=== PATIENT | female | born 1965 | race Caucasian/White ===

== ENCOUNTER 2021-03-21 10:53 | Inpatient (IN) | payer OTHER ==
[~2021-03-21] VITALS: Ht 165.1 cm; Wt 77.1 kg
--- NOTE | ~2021-03-21 | HC ---
[facility] [place] [address] CONSULTATION Name: TONY AGOSTO Room #: 206-P ADM IN M.R.#: [id number] Admission: 03/21/21 Attend Phys: Pablo Lopez MD Discharge: Date of : 63 Report #: [id number] THIS REPORT FOR: cc: GRISEL MENA MD Physician not on staff Eusebio Alexander MD ~ DATE OF SERVICE: 03/24/2021 HISTORY OF PRESENT ILLNESS: This is a 55-year-old female patient who is not able to provide any reliable history. I tried to call the patient's mother twice, but was unable to reach her. I left a message for her to call back. I reviewed from the records and looks like the biggest complaint for which she was admitted was generalized weakness. She did have apparently some altered mental status. She was seen by Teleneurology and subsequently by ID. Teleneurology did a CT angiogram of the head and neck and that was unremarkable. ID followed her up for infection, which was low grade. They are managing the infection part of it. I discussed the patient with them. They do not plan to do LP at the moment because this patient is very uncooperative and apparently will require anesthesia to do the LP. They are handling that and I will defer to them. Neurology consultation was requested because she was admitted with a stroke-like symptom to see if any other workup need to be done. Since I am unable to reach the patient's mother, I am not able to get a good history, but the best I can tell this patient is admitted because her biggest problem was ambulation difficulty. She was alert and oriented x 2 in the Emergency Room and I am not sure whether that is much different than her baseline. She is going to be seen by a psychiatrist also. REVIEW OF SYSTEMS: Also positive for schizoaffective, bipolar disorder, esophageal reflux, hypertension. This is from the record. PAST MEDICAL HISTORY: Positive for psychiatric issues, but I do not know what her baseline is except from the record. FAMILY HISTORY: Unavailable. SOCIAL HISTORY: She lives in a alf. PHYSICAL EXAMINATION: Somewhat unusual. She is conscious. She is alert. When I ask her a question, she just smiles and she ultimately told me what hospital she is in. When I asked her what month it is, she did not know. When I told her it is March, she told me it is not March. Her speech looks intact. Cranial nerve examination 2-12 was limited because of poor cooperation, but looks mostly nonfocal. There does not appear to be any abnormality of the position sense and she cooperated that reasonably well. She did move all 4 extremities. It is difficult to tell me how much difference it is with her baseline because she is reasonably did well with the strength. No change in cardiac or respiratory [address] [address] CONSULTATION Name: TONY AGOSTO Room #: 206-P ADM IN M.R.#: [id number] Admission: 03/21/21 Attend Phys: Pablo Lopez MD Discharge: Date of : 63 Report #: [id number] status. IMPRESSION AND PLAN: It is impossible to tell what is happening in this patient since the baseline is unknown. I do not think she has any stroke. I will do an MRI and EEG to exclude any pathology. We will defer to ID, but a question of LP and they are already addressing that. I will see if MRI and EEG shows any other abnormality, which needs any Neurology attention and follow up tomorrow I spent more than 50 minutes of time reviewing her imaging studies and her records and trying to console her, but I am not sure she understands, but we will talk to the patient's mother also whenever she called us back. By: [id number] Eusebio Alexander MD /nt
--- NOTE | ~2021-03-21 | EMS ---
[address] [address] EMS Patient Care Report Name: TONY AGOSTO Room #: 206-P ADM IN M.R.#: [id number] Admission: 03/21/21 Attend Phys: Pablo Lopez MD Discharge: Date of : 63 Report #: [id number] THIS REPORT FOR: //name// Report Transmitted: 03/25/2021 09:46 EMS Care Summary [place], [place]/[facility] Incident [id number] @ 03/21/2021 10:17 Incident Location [address] [facility] Patient TONY AGOSTO Female, 55 Years 1965 Patient Address [address] [place], [place] [id number] Patient History Seizures,Bipolar II Disorder,Schizoaffective Disorder, Patient Allergies No known allergies, Patient Medications Clonazepam, Levothyroxine, Invega, Divalproex Sodium, Risperidone, Benztropine, Chief Complaint aloc/fever Disposition Transported No Lights/[place] Dispatch Reason Sick Person Transported To [facility] Narrative staff states pt hasnt been acting like her self for past 24 hours. she normally talks and gets around she hasnt been able to eat /drink , has nt been acting like self .we took temp and was warm to touch, she never spoke to us . she was [address] [address] EMS Patient Care Report Name: TONY AGOSTO Room #: 206-P ADM IN M.R.#: [id number] Admission: 03/21/21 Attend Phys: Pablo Lopez MD Discharge: Date of : 63 Report #: [id number] anxious and hard to keep on cot. no other changes en route. Initial Vitals @10:38P: 98,R: 18,BP: 127/82,Temp: 99F,Glucose: 107,SpO2: 90, @10:49P: 95,R: 16,BP: 135/70,Pain: 0/10,GCS: 14,SpO2: 99,Revised Trauma: 12, Assessments @10:45MENTAL:Confused,SKIN:Hot,HEENT:Head/Face: No Abnormalities,Eyes: No Abnormalities,Neck/Airway: No Abnormalities,LUNG SOUNDS:General: No Abnormalities,Left Upper: No Abnormalities,Right Upper: No Abnormalities,Left Lower: No Abnormalities,Right Lower: No Abnormalities,ABDOMEN:General: No Abnormalities,Left Upper: No Abnormalities,Right Upper: No Abnormalities,Left Lower: No Abnormalities,Right Lower: No Abnormalities,PELVIS//GI:Incontinence,EXTREMITIES:Left Arm: No Abnormalities,Right Arm: No Abnormalities,Left Leg: No Abnormalities,Right Leg: No Abnormalities,PULSE:NEURO:No Abnormalities, Impression Altered Mental Status Procedures @10:45 Oxygen FlowRate: 2 Device: Nasal Cannula (NC) Response: UnchangedSucceeded @10:45 ALS Assessment Response: UnchangedSucceeded @10:49 General Comments Response: Unchanged Timeline 10:15,Call Received 10:15,Dispatch Notified 10:17,Dispatched 10:17,En Route 10:22,On Scene 10:26,At Patient 10:31,Depart Scene 10:38,BP: 127/82 M,PULSE: 98,RR: 18 R,SPO2: 90 Ox,ETCO2: ,B,PAIN: ,GCS: , 10:45,ALS Assessment,Response: UnchangedSucceeded, 10:45,Oxygen FlowRate: 2 Device: Nasal Cannula (NC) Response: UnchangedSucceeded, 10:49,At Destination 10:49,General Comments,Response: Unchanged 10:49,BP: 135/70 M,PULSE: 95,RR: 16 R,SPO2: 99 Ox,ETCO2: ,BG: ,PAIN: 0,GCS: 14, 11:11,Call Closed Disclaimer v1.1 Copyright 2021 [email or web address] [place] [address] EMS Patient Care Report Name: TONY AGOSTO Room #: 206-P ADM IN .R.#: [id number] Admission: 03/21/21 Attend Phys: Pablo Lopez MD Discharge: Date of : 63 Report #: [id number] This EMS Care Summary contains data elements from the applicable legal record (which may be displayed differently). It is designed to provide pertinent information for the following purposes: continuity of care, clinical quality, and state data reporting. The complete legal record is available to ED staff and administrators of the receiving hospital in [facility]'s Patient Tracker. All data is provided "as is."
[2021-03-21 10:53] VITALS: BP 119/77
[~2021-03-21 10:53] MED LIST: ACETAMINOPHEN325 M1 PO; ATIVAN1 MG; BENZTROPINE MES1 MG PO; CELEXA40 MG PO; CLOZAPINE100 M1 PO; DEPAKOTE 250MG250 M1; HALDOL 0.5 MG0.5 M1; HYDROCHLOROTH12.5 MG PO; IBUPROFEN 600600 M1 PO; LORAZEPAM 22 MG/1 ML; MOM PO; MULTIVITAMINS1 EAC7; MYLANTA 12 OZ355 M1 PO; PANTOPRAZOLE SO40 M1; PEPTO-BISM262 MG/15 PO; RISPERDAL2 MG; SODIUM CHLORIDE1 G2; SYNTHROID175 MCG PO
[2021-03-21 11:24] LABS: URINE BILIRUBIN NEGATIVE (Negative); URINE BLOOD NEGATIVE (Negative); URINE CLARITY CLEAR; URINE COLOR YELLOW; URINE GLUCOSE-RANDOM* NEGATIVE (Negative); URINE KETONES 1+ (Negative); URINE LEUKOCYTES-REFLEX NEGATIVE (Negative); URINE NITRITE-REFLEX NEGATIVE (Negative); URINE PROTEIN (DIPSTICK) NEGATIVE (Negative); URINE SPECIFIC GRAVITY 1.015 (1.005-1.035)
[2021-03-21 11:42] LABS: CALCIUM 8.9 mg/dL (8.5-10.1)
[2021-03-21 11:43] LABS: BASOPHILS 0.1 % (0.0-2.0); HEMATOCRIT 38.4 % (37.0-47.0); HEMOGLOBIN 12.8 gm/dL (12.0-15.0); LYMPHOCYTES 11.4 % (24.0-44.0); MCH 30.2 pg (26.0-34.0); MCHC 33.2 g/dL (28.0-37.0); MCV 90.9 fL (80.0-100.0); MONOCYTES 13.1 % (1.0-8.0); PLATELET COUNT 107 thou/uL (150-400); POLYS 75.4 % (36.0-66.0); RBC 4.23 mil/uL (4.20-5.00); RDW 16.1 % (10.5-14.5); WBC 6.7 thou/uL (4.0-11.0)
[2021-03-21 11:48] LABS: ALBUMIN 2.7 g/dL (3.4-5.0); DIRECT BILIRUBIN 0.1 mg/dL (<0.1-0.2); TOTAL BILIRUBIN 0.5 mg/dL (0.2-1.0)
--- NOTE | 2021-03-21 13:36 | NUR ---
Contacted [facility] to attain info re:pt's baseline mentation.Unable to speak w/ nurse.Message left w/ clinic receptionist for nurse to return call to IRASEMA Miner
[2021-03-21 20:00] VITALS: BP 130/76
[2021-03-22 04:00] VITALS: BP 98/59
[2021-03-22 06:12] LABS: HEMATOCRIT 33.7 % (37.0-47.0); HEMOGLOBIN 11.2 gm/dL (12.0-15.0); MCH 30.8 pg (26.0-34.0); MCHC 33.2 g/dL (28.0-37.0); MCV 92.7 fL (80.0-100.0); RBC 3.64 mil/uL (4.20-5.00); RDW 16.3 % (10.5-14.5); WBC 3.2 thou/uL (4.0-11.0)
[2021-03-22 06:50] LABS: ALBUMIN 2.4 g/dL (3.4-5.0); CALCIUM 8.6 mg/dL (8.5-10.1); CREATININE 0.8 mg/dL (0.6-1.0); POTASSIUM 3.8 mmol/L (3.5-5.1); TOTAL BILIRUBIN 0.3 mg/dL (0.2-1.0); TOTAL PROTEIN 5.4 g/dL (6.4-8.2)
[2021-03-22 09:35] VITALS: BP 122/72
[2021-03-22 22:55] VITALS: BP 150/83
[2021-03-22 23:25] VITALS: BP 150/83
[2021-03-23 01:06] LABS: CORTISOL RANDOM 11.7 ug/dL (())
--- NOTE | 2021-03-23 04:35 | NUR ---
PT LYING IN BED. IMPULSIVE. DENIES PAIN. CURRENTLY RESTING COMFORTABLY. FREQUENT OBSERVATION.
[2021-03-23 10:00] VITALS: BP 117/70
[2021-03-23 11:48] LABS: APTT 28.4 Seconds (24.5-32.8); INR 1.01
--- NOTE | 2021-03-23 12:58 | NUR ---
PT OFF UNIT FOR LUMBAR PUNCTURE.
--- NOTE | 2021-03-23 13:19 | NUR ---
PT RETURN FROM RADIOLOGY AND UNABLE TO COMPLETE LUMBAR PUNCTURE.
[2021-03-23] MEDS ORDERED: KLONOPIN1 MG PO (20:00)
[2021-03-23] MEDS ORDERED: DIVALPROEX SOD500 M1 PO (20:02)
[2021-03-23 20:40] VITALS: BP 114/66
[2021-03-24 01:04] VITALS: BP 114/66
--- NOTE | 2021-03-24 04:45 | NUR ---
PT IS PLEASANTLY CONFUSED. MED REC COMPLETED ON PTS PSYCH MEDICATION OFF LIST SENT FROM [facility]. PT SHOULD GO FOR LUMBAR PUNCTURE TODAY.
[2021-03-24 05:08] VITALS: BP 160/82
--- NOTE | 2021-03-24 08:00 | HC ---
[facility] [place] [address] CONSULTATION Name: TONY AGOSTO Room #: 170-24 ADM IN Darlene.Merry.#: [id number] Admission: 03/21/21 Attend Phys: Pablo Lopez MD Discharge: Date of : 63 Report #: [id number] THIS REPORT FOR: cc: GRISEL MENA MD Physician not on staff William Roberts MD ~ DATE OF SERVICE: 03/23/2021 INFECTIOUS DISEASE CONSULTATION ATTENDING PHYSICIAN: Dr. Lopez. REASON FOR EVALUATION: Febrile illness with encephalopathy. HISTORY OF PRESENT ILLNESS: Chart reviewed. The patient examined. This is a 55-year-old with known history of significant psychiatric issues including schizoaffective disorder, bipolar disorder, who was in a facility. Apparently, they noted worsening confusion and draining sinus on her neck. Reportedly, she has not been particularly responsive, although she did awake for me. She is quite confused. She has been afebrile. Evaluation noted a markedly low TSH in the setting of hypothyroidism. Urinalysis is unremarkable. Lactic acid 1.1. Chest x-ray showed a possible left basilar infiltrate. Coronavirus testing was negative. Influenza antigen testing was negative. CT of the head was otherwise unremarkable. CT of the neck showed no acute process intracranially or involving the neck. Blood cultures collected at time of admission are sterile thus far. She is scheduled to undergo a lumbar puncture. She was empirically started on therapy with azithromycin and ceftriaxone. ALLERGIES: None known. CURRENT MEDICATIONS: Include Haldol, ceftriaxone, azithromycin. HOME MEDICATIONS: Include multivitamin, pantoprazole, Haldol, risperidone, Valproex, lorazepam, clozapine, citalopram, levothyroxine. SOCIAL HISTORY: Nonsmoker, no ethanol, no illicit drug use. FAMILY HISTORY: Noncontributory. REVIEW OF SYSTEMS: Not reliably obtained. PHYSICAL EXAMINATION: GENERAL: She is chronically ill-appearing, confused, undernourished, in moderate distress. VITAL SIGNS: Temperature 98.7, pulse 50, respirations 20, blood pressure 117/70. [facility] [address] [place] [address] CONSULTATION Name: TONY AGOSTO Room #: 170-24 ADM IN M.R.#: [id number] Admission: 03/21/21 Attend Phys: Pablo Lopez MD Discharge: Date of : 63 Report #: [id number] SKIN: Warm, dry, no rashes. HEENT: Normocephalic. Extraocular muscles intact. NECK: Supple. LUNGS: Diminished breath sounds. Few crackles at the bases. HEART: Regular. I do not appreciate a murmur. ABDOMEN: Soft, nontender. EXTREMITIES: No cyanosis. GENITOURINARY AND RECTAL: Deferred. LABORATORY DATA: Electrolytes: Sodium 144, potassium 3.8, chloride 110, bicarbonate 28, anion gap of 6, BUN and creatinine 8 and 0.8, glucose of 72, albumin 2.4, total protein 5.4, ammonia 12. CBC: White count of 3.2, H and H is 11.2 and 33.7, platelets of 89. Coronavirus PCR was negative. ASSESSMENT AND PLAN: Febrile illness with worsening encephalopathy. It is not entirely clear what her baseline is. She clearly has significant underlying medical and psychiatric disease burden. We will adjust antimicrobial therapy, await lumbar puncture results. At this point, not evident she has a bacterial meningitis. She is certainly at risk for nosocomial related complications. We will monitor. <ELECTRONICALLY SIGNED> By: William Roberts MD 03/24/21 08 1059 192 William Roberts MD /nt
[2021-03-24 09:26] VITALS: BP 139/85
--- NOTE | 2021-03-24 11:28 | NUR ---
PT ADMITTED RELATED TO AMS, SLURRED SPEECH, DEHYDRATION. CM REVIEWED CHART AND SPOKE WITH CARE TEAM. JAREK CALLED AND SPOKE WITH PT'S MOTHER KRISTIN YESTERDAY. SHE INDICATED THAT SHE IS PT'S LEGAL GUARDIAN AND THAT [facility] HAS COPY ON FILE. SHE INDICATED THAT PT HAS BEEN AT [facility] FOR 9 YEARS. 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 HER MOTEHR INDICATED THAT PT'S HAD ONSET OF SCHIZOAFFECTIVE DISORDER AT 25 AND HAD BEEN MOSTLY INSUTUTIONALIZED SINCE THEN. PT HAD HX OF ABD CANCER AND HAD MASS REMOVED AT [facility] [address]. PT HAD NECK LUMP WELL. PT HAD ECT WHEN IN INPATIENT PSYC AT [facility]. JAREK INDICATED TO MOTHER THAT THEY WERE TRYING TO DO AN LP AND EXPLAINED WHAT THAT WAS AND THAT PT WAS ON A NUMBER OF ABX. CM PROVICED MOTHER/GUARDIANS NUMBER TO HOSPITALIST. MOTHER INDICATED PLAN IF FOR PT TO RETURN TO [facility] ONCE MEDICALLY STABLE. THEY ARE ABLE TO ACCEPT ONCE READY. JAREK SPOKE WITH SOULEYMANE AT [facility] AND PROVIDED UPDATE. SHE IS TO FAX OVER COPY OF GUARDIANSHIP PAPERWORK. CM FOLLOWING.
--- NOTE | 2021-03-24 12:25 | NUR ---
PT NOT APPROPRIATE FOR OT DUE TO COGNITIIVE/MENTAL STATUS. SEE VARIANCE
--- NOTE | 2021-03-24 15:06 | NUR ---
Care team indicated that they aren't going to conduct LP any longer. Pt is on ceftriaxone, vancomycin, and acyclovir. Hospitalist indicated that we are awaiting ID determination of abx needs and duration. Cm reached out to SOULEYMANE quezada at [facility] and she indicated they wouldn't accept this particilar pt back on iv abx. Cm notified Hospitalist. Cm following.
--- NOTE | 2021-03-24 15:59 | NUR ---
PT ALERT AND ORIENTED TIMES THREE WITH PERIODS OF CONFUSION. VSS. LUMBAR PUNCTURE CANCELED TODAY. PT HAS REPEATEDLY REFUSED TO HAVE HER IV REPLACED AFTER PULLING IT OUT THIS MORNING. DR SOTOMAYOR. PT WORKED WELL WITH PT TODAY WALKING IN THE HALLWAY.
[2021-03-24 17:49] VITALS: BP 159/80
[2021-03-24 20:11] VITALS: BP 147/72
[2021-03-24 20:12] VITALS: BP 147/72
--- NOTE | 2021-03-24 23:38 | NUR ---
PATIENTS CARES WHERE ASSUMED AT SHIFT CHANGE. PATIENT REFUSED TO LET NURSING ASSESS HER. SHE HAS NO IV ACCESS. SHE IS REFUSING TO WEAR THE HEART MONITOR STATING, "IT IS GOING TO CAUSE ME TO HAVE A HEART ATTACH." PATIENT HAS GOOD OUT PUT. AT HALF THE SHIFT SHE HAS PUT OUT 1000CC OF URINE.ROUTINE ROUNDS DONE TO NOT UPSET HER. THE BED IS IN A LOW AND LOCKED POSITION
[2021-03-25 03:54] VITALS: BP 138/79
[2021-03-25 07:57] VITALS: BP 142/81
[2021-03-25 11:30] VITALS: BP 126/79
[2021-03-25 15:41] VITALS: BP 143/72
--- NOTE | 2021-03-25 16:44 | NUR ---
AT 8AM PT REFUSED TO TAKE HER MEDS SAYING, "ITS POISON!" PT HAS NO IV ACCESS, NO TELE ON. PT KEEPS SAYING, "SHELLEY IS SUPPOSE TO COME BRING MY FOOD TRAYS." THEN PT STATED "THAT WOMAN IN THE CORNER IS COOKING ME EGGS AND I WANT TO EAT THEM!"
[2021-03-25 19:31] VITALS: BP 126/88
[2021-03-26 03:42] VITALS: BP 126/77
[2021-03-26 07:45] VITALS: BP 126/80
--- NOTE | 2021-03-26 08:42 | NUR ---
PATIENT REFUSING ALL MEDICATIONS AND FOOD THIS MORNING STATING THAT IT IS ALL "POISON" AND THAT I NEED TO LEAVE HER ROOM. ATTEMPTED TO ORIENT AND EDUCATE PATIENT ON HER HOSPITAL STAY AND PLAN OF CARE, BUT PATIENT WAS UNACCEPTING AT THIS TIME.
--- NOTE | 2021-03-26 15:30 | NUR ---
CHART REIVEWED AND DISCUSSED WITH CARE TEAM. PT WILL TRANSFER BACK TO [facility] UNIT ONCE PT MEDICALLY STABLE TO DC. CM WILL CONTINUE TO FOLLOW.
[2021-03-26 16:00] VITALS: BP 123/77
[2021-03-26] MEDS ORDERED: LORAZEPAM 22 MG/1 ML IM (17:45)
[2021-03-26] MEDS ORDERED: LORAZEPAM 1 MG T1 MG PO (17:45)
[2021-03-26] MEDS ORDERED: DIVALPROEX SOD500 M1 PO (17:45)
[2021-03-26] MEDS ORDERED: RISPERDAL2 MG PO (17:45)
[2021-03-26] MEDS ORDERED: DIVALPROEX SOD250 M1 PO (17:45)
[2021-03-26] MEDS ORDERED: CEFDINIR300 MG PO (17:50)
[2021-03-26 20:36] VITALS: BP 124/73
--- NOTE | 2021-03-26 23:45 | NUR ---
Pt. has been non-compliant with cares. She refused to let this nurse do assessment. Pt. now being transfered to [facility] and report given to Raya GABRIEL.
== END 2021-03-26 23:44 | DRG 193 ==
LOC: ER 10:53 → EROBS 17:39 → 2N 17:39 → EROBS 21:02 → 2N 03-24 17:39
PROVIDERS: Nurse Practitioner; Psychiatry & Neurology Psychiatry; ADMIT Internal Medicine; ATTEND Internal Medicine
DX: J18.9 Pneumonia, unspecified organism (principal); G92.8 Other toxic encephalopathy; Z20.822 Contact with and (suspected) exposure to COVID-19; E03.9 Hypothyroidism, unspecified; Z77.22 Contact with and (suspected) exposure to environmental tobacco smoke (acute) (chronic); M19.90 Unspecified osteoarthritis, unspecified site; I10 Essential (primary) hypertension; K21.9 Gastro-esophageal reflux disease without esophagitis; F25.0 Schizoaffective disorder, bipolar type; R41.0 Disorientation, unspecified; Z82.49 Family history of ischemic heart disease and other diseases of the circulatory system
CPT/HCPCS: 10081

== ENCOUNTER 2021-03-26 18:01 | Inpatient (IN) | payer OTHER ==
[~2021-03-26] VITALS: Ht 167.6 cm; Wt 81.2 kg
[~2021-03-26 18:01] MED LIST changes: +CEFDINIR300 MG PO; +DIVALPROEX SOD250 M1 PO; +DIVALPROEX SOD500 M1 PO; +KLONOPIN1 MG PO; +LORAZEPAM 1 MG T1 MG PO; +LORAZEPAM 22 MG/1 ML IM; +RISPERDAL2 MG PO
--- NOTE | 2021-03-27 02:51 | NUR ---
ADMISSION WILLIAN Gusman was admitted to [facility] from on 03/27/21 at 0002. Pt was not cooperative with admission process. Pt was made a 96 hour hold for refusing to sign in voluntarily. Vital signs were obtained. Skin assessment was performed; results unremarkable. Pt was provided with snack, water, and toiletries. Pt rested in bed through the night.
[2021-03-27 09:28] VITALS: BP 129/78
--- NOTE | 2021-03-27 10:35 | NUR ---
Alert and orientated to person, place and time but gives different name at times. Refusing to get out of bed initially and then pretending to be asleep. Refused meds when offered on multiple passes, Dr. Ramirez notified, states he will reevaluate after tx team. Denies SI/HI. Refused labs stating that she was still eating. certified veterinary technician states he will come back. Breath sounds clear. Reg HR auscultated. Color pink with brisk capillary refill and palpable peripheral pulses. Independent with voiding. Active bowel sounds over soft, rounded abdomen. Ambulates with regular, steady gait. Currently eating breakfast in day room.
--- NOTE | 2021-03-27 11:06 | NUR ---
Phone call to mother, Luz Marina Florentino - Voice message
--- NOTE | 2021-03-27 11:16 | NUR ---
Alert and orientated X3. Initially gave a different name and stated that I didn't need to know her real name. Resistant to getting out of bed and when encouraged she pretended to sleep. Refused to take AM meds on multiple passes. Dr. Ramirez notified, will evaluate after tx plan. Also refused lab draw X2, shanique gold requested. Was then compliant with lab draw, collection specialist clover labs per L AC without difficulty. Breath sounds clear. Reg HR auscultated. Color pink with brisk capillary refill and palpable peripheral pulses. Active bowel sounds over soft, rounded abdomen. Independent with voiding. Ambulates with regular, steady gait. Currently speaking with Dr. Ramirez.
[2021-03-27 11:51] LABS: CHOLESTEROL 223 mg/dL (<200); HDL CHOLESTEROL 42 mg/dL (>40); LDL CHOLESTEROL 119 mg/dL (<100); TC:HDL 5.3 Ratio (Not establshd); TRIGLYCERIDE 310 mg/dL (<150); VLDL 62 mg/dL (<40)
--- NOTE | 2021-03-27 11:54 | NUR ---
New admit to [facility]. Noted pt was on CCU prior, admitted to [facility] early this AM. Admitted with AMS, dx bipolar d/o, HTN. She has had good intakes on regular diet with no c/o chewing or swallowing difficulty. ST eval completed. Her weight is stable. Plan to d/c back to [facility] when able. Consider low nutrition risk at this time.
--- NOTE | 2021-03-27 14:56 | NUR ---
BRIANA and Dr. Ramirez met with the patient. The patient knows she is in [facility]; however, she does not know what unit she is on nor what she was hospitalized for. When asked the date, the patient responded that it was March 06. She remained adamant that it was that day despite being informed otherwise. When asked who she resides with, the patient responded "with her kids". The patient denies any SI/HI. The patient started laughing. The SW asked who was in the room with the patient and the patient responded appropriately. Dr. Ramirez asked the patient where was she born and raised. The patient sat quietly and no longer responded. The meeting with the patient was ended. The SW attempted to contact the patient's guardian, her mother Luz Marina. A voice message was left. The mother did leave a return voice message stating she was in a library and was not able to talk but could text. The SW and Dr. Ramirez made contact with the patient's mother ([phone]). The mother, Luz Marina, is the guardian for the patient. The placement, [facility], has the paperwork indicating the guardianship. Luz Marina reported she would not be able to send a copy but could text a picture of the documentation once she returned home. Luz Marina reports the patient was diagnosed with schizophrenia after the of her 4th child when she was 25 years old. Luz Marina and the patient's father, who is now , had been concerned in that the patient was not feeding and the baby and saying the baby did not have a liver. Luz Marina and the patient's father attempted to keep the patient in the home for as long as they could; however, they became unable to control the patient in the home. The patient has had several hospitalizations and been in multiple institutions. The patient is currently placed at [facility] and has been for the past 9 years. Luz Marina reports that [facility] made contact with her stating the patient was lethargic and laying on the floor. Luz Marina reports that one of the other symptoms the patient frequently experiences is auditory hallucinations. Luz Marina states the voices will tell the patient to do "all types of things". The patient has a college degree and worked as a household personal assistant. She does not have a history of substance or alcohol abuse. There are no family members with mental health history. Luz Marina is in support of everything to be done to ensure that the patient is receiving medication. She reported that having someone from security would most likely encourage the patient to take medication. A family meeting will be scheduled for Tuesday, 03/30 at 1500.
[2021-03-27 21:04] VITALS: BP 122/85
--- NOTE | 2021-03-27 23:40 | NUR ---
At onset of weight shifter pt was sitting in day room watching TV. Pt was not watching TV, but was facing away from the TV. Pt was up ad napoleon independently. Pt refused medication, but was compliant with vital signs. Pt did not socialize with peers, and was not very social with staff. Pt was observed smiling innapropriately while nurse was speaking to her. Pt stated that there is a devil on the unit. Pt stated that a "black man" was the devil and stated the man had a gun. RN assured pt that there was no gun on the unit and that the hospital is safe. Pt is a low fall risk. Will continue to monitor.
[2021-03-28 07:12] LABS: GLYCOHEMOGLOBIN (HGB A1C) 4.9 % (4.8-5.6)
--- NOTE | 2021-03-28 11:34 | NUR ---
Alert and quiet this AM. Resistant to assessment and assistance with putting on pants/socks but then complied. Approached with AM meds multiple times and by multiple staff members. Offered whole and then crushed in apple sauce and then given choice of oral med or shot. Kept stating, "You're not my nurse. You locked my nurse up. Go away, get out of here." When approached last time she jumped up and went to door. Placed in recliner where another RN attempted to give PO med. She then grabbed syringe out of RN hand. Restrained and haldol given IM per R deltoid. Has been sitting quietly in dining room without s/o distress since shot at 0900. Breath sounds clear. Reg HR auscultated. Color pink with brisk capillary refill and palpable peripheral pulses. Active bowel sounds over soft, rounded abdomen. Independent with voiding. Ambulates with regular, steady gait.
[2021-03-28 19:32] VITALS: BP 129/88
--- NOTE | 2021-03-28 21:55 | H ---
[facility] [place] [address] HISTORY AND PHYSICAL Name: TONY AGOSTO Room #: 523A-A ADM IN M.R.#: [id number] Admission: 03/27/21 Attend Phys: Osmar Ramriez DO Discharge: Date of : 63 Report #: [id number] THIS REPORT FOR: cc: FAM - Family physician unknown FAM - Family physician unknown Osmar Ramirez DO ~ DATE OF SERVICE: 03/27/2021 INPATIENT PSYCHIATRIC EVALUATION ATTENDING PSYCHIATRIST: Osmar Ramirez DO RADIO DIRECTOR: Lucy Ramirez APRN and Ran Sarmiento MD and his hospitalist team. REASON FOR ADMISSION: Overt psychosis, refusing medication. The patient is a resident of [facility]. On special note, her mother, Luz Marina, is presently her guardian by self-report. We do not have documentation of a [place] or [place] guardianship. SOURCES OF INFORMATION: The patient is a very poor historian. Telephone conversation with the mother Luz Marina, records here at [facility] including a consultation that was done by Dr. Cha Lucas. HISTORY OF PRESENT ILLNESS: This 55-year-old female presented from [facility]. She has had a 9-year lengthy stay at [facility] with acute confusion and fever. The patient has a known history of underlying schizophrenia versus schizoaffective disorder. Initially, there was a concern that the patient had a UTI with resultant urosepsis; however, later on there were concerns about a stroke. The stroke appeared to be excluded. I do not believe a lumbar puncture was done. The patient was lethargic, minimally conversant, slurring her words. The patient was admitted medically. She had a normal CT of head and neck with contrast. She has quite the home medication lists including Haldol, pantoprazole, Depakote, lorazepam, citalopram, clozapine, levothyroxine and risperidone. I think that is quite frankly not a reliable list, but it is in the ER note. Labs revieed and noted in documents from her medical stay on 2 N. No pertienent positives from those. per Infectous diseas ephsyician she does not need forther treatment for bacterial or viral concern if asymptomatic. MEDICAL HISTORY: Includes hypertension, esophageal reflux, hypothyroidism, and osteoarthritis. PSYCHIATRIC HISTORY: Schizoaffective disorder. When Dr. Lucas saw her, she noted she is on a maximum dose of Invega and extremely high dose of Risperdal at [address] [address] HISTORY AND PHYSICAL Name: TONY AGOSTO Room #: 52-A ADM IN ..#: [id number] Admission: 03/27/21 Attend Phys: Osmar Ramirez DO Discharge: Date of : 63 Report #: [id number] Lucas started her on Risperdal 2 mg b.i.d., apparently, she was getting, it sounds like, 8 mg b.i.d.; Depakote ER; and Ativan. ALLERGIES: No known allergies. REVIEW OF SYSTEMS: Dr. Lopez's hospitalization H and P had 14-point review of systems and reviewed and negative except as in HPI. The patient was not cooperative with oral medications. She did receive IV antibiotics. I checked with Dr. Roberts via telephone, who was involved in ID consultation on her, the question of whether she needed cefuroxime, cefdinir and she does not at this point. PHYSICAL EXAMINATION: VITAL SIGNS: Today, temperature 36.2, pulse 93, respirations 17, BP 129/78, O2 sat 96%, weight 80.513 kg, BMI 28.6. GENERAL: A well-developed, somewhat disheveled female in yellow falls prevention shirt and scrub pants. She did try to elope when I was entering the unit through the locked doors today. MENTAL STATUS EXAMINATION: A well-developed, disorganized, somewhat ill-appearing female. Attention limited. Concentration limited. Speech slow, delayed. Thought process, linear. Very limited thought content, fairly gross poverty. Denied SI, HI. Denied auditory or visual-type hallucinations, but did appear to be responding to external stimuli. Mood and affect was irritable, congruent. Memory not formally tested. Insight and judgment impaired. Fund of knowledge well below average. FORMULATION: A 55-year-old female admitted for a concern of delirium due to viral versus bacterial meningitis and was subsequently evaluated for a stroke. DIAGNOSES: At this time, schizoaffective disorder, depressed type, decompensated. The patient's medical comorbidities are as follows: Hypothyroidism and history of encephalopathy. PLAN: The patient is admitted under a 96-hour hold, unclear if she has a valid guardianship or not at this point. Evaluate, stabilize, obtain collateral. There is some confusion on what medications she should and should not be on. I have spoken about this with her pharmacist, Dr. Lopez, etc., by a group decision. No more cefdinir. I have recommended against Depakote at this time, as it is not for seizures and the patient is refusing oral medications. She is currently on a vitamin, pantoprazole 40 mg daily, levothyroxine 175 mcg daily, which she may well refuse, but there is nothing we can do about that. I am injecting her with 5 mg IM of Haldol, if she refuses 2 mg p.o. b.i.d. of risperidone. There is p.r.n. Ativan for agitation and anxiety, which I will [facility] [address] [place] [address] HISTORY AND PHYSICAL Name: TONY AGOSTO Room #: 523A-A ADM IN M.R.#: [id number] Admission: 03/27/21 Attend Phys: Osmar Ramirez DO Discharge: Date of : 63 Report #: [id number] leave for now and otherwise, house PRNs. There will be a lot more to investigate for this patient, but we will evaluate, stabilize, obtain collateral. Estimated length of stay 10-14 days. If she does not have a valid guardianship, we would probably have to discharge her at the end of 96-hour hold back to [facility]. Time spent on this case is well over 60 minutes. STRENGTHS: She is insured, has a placement. WEAKNESSES: Very psychotic, very long history of schizophrenic disease dating back 30 years. <ELECTRONICALLY SIGNED> By: Osmar Ramirez DO 03/28/21 2155 [id number] [id number] Osmar Ramirez DO /nt
--- NOTE | 2021-03-29 03:58 | NUR ---
PATIENT CARE WAS RESUMED AT 1900. SHE IS AWAKE SITTING IN THE DININIG ROOM ON THANH-CHAIR. SHE IS CONTINENT OF BOWEL AND BLADDER. SHE CONTIUES TO EXIT SEEK AND PUSHING AT THE DOORS AND STAFF RE-DIRECTS. SHE REFUSES HER MEDICATION AND IM MEDICATON WERE ADMINISTERED WITH NON EFFECT PATIENT CONTINUES TO WANDER ND PUSHES AT THE DOOR PERIODICALLY. SHE REFUSED TO BE ASSESSED.
[2021-03-29 09:08] VITALS: BP 137/69
[2021-03-29 09:45] VITALS: BP 137/69
--- NOTE | 2021-03-29 17:03 | NUR ---
Assumed pt care from overnight shift this am. Client was in activity area resting during this time. Client has been wandering in and out of activity area, pacing during this shift and is oriented to self only. When trying to ask client orientation questions and further evaluation questions, client would ask instead about her chickens, and would not answer questions about depression/anxiety/hallucinations/si/hi at this time. Client was fixated on her chickens and then would intermittently ask for a live chicken then chicken tenders. Client refused all medications at this time. As client had gotten several IMs night prior, IM was held as client was not agitated or aggressive at this time and was redirectable. No further concerns at this time.
[2021-03-29 19:40] VITALS: BP 112/69
[2021-03-29 20:15] VITALS: BP 112/69
--- NOTE | 2021-03-29 23:40 | NUR ---
Assumed care on 03/29/21 @ 1900, A&Ox2, Impulsive and delusional, refusing meds and finally with great deal of encouragement, took meds crushed in pudding. HRRR, lung sounds diminished, ABD n x 4Q. PRN Lorazepam 1mg provided @ 20:30 after repeated attempts to gain cooperation with medication administration. Patient took herself to bed and laid down in the wrong bed, when staff attempted to redirect her to her bed, she refused. Is currently sleeping in rm 521A. Continent of urine, low fall risk. Bed in low position, rounding as per unit protocol for safety and comfort.
[2021-03-30 09:00] VITALS: BP 112/69
--- NOTE | 2021-03-30 13:23 | NUR ---
Assumed pt care this morning from overnight shift. Pt presented hostile and flat at this time, and was oriented to self only. Pt was sleeping in a room and bed that was not assigned to her at this time, and would not listen to staff when asked to return to her own room and bed. Pt was resistant to cares at this time, and refused to move, with three staff members needing to coax pt to get out of bed, and placing pt in wheelchair to take her to activity area in order to move pt. Pt tried to return to bed once, but was able to eventually be redirected to chair again. Pt could not answer any further orientation questions, depression/anxiety questions, si/hi, or hallucinations questions. Client was suspicious of staff, and asked "how do I know you work here- how do I know you aren't poisoning me-my doctor doesn't give me medications-I don't take anything" when staff was trying to reorient client. Staff explained importance of taking medication to client, and explained that client had this medication, or, if needed, an IM backup which she had a choice between, explaining how IMs worked under 96 hour holds. Staff explained each medication individually to client as well, and explained why taking medication orally would be more beneficial to client. Client eventually agreed to take medication at this time. During this shift, client has been reoriented several times. Client has been asked to keep arm band on (has taken it off or broken it off three times) and has been asked to not go into other client's rooms, which she has done several times. Client continues to be redirectable, but hostile and fussy when staff provide cares. No further concerns at this time.
--- NOTE | 2021-03-30 16:01 | NUR ---
Phone call to Zaria Julian, [employer] Coordinator, regarding guardianship paperwork for patient. Aislinn stated she would have someone check and call back with the information. Phone call to Luz Marina Florentino - Voice message cancelling family meeting until guardianship paperwork is received. In person with Dr. Ramirez. Guardianship paperwork has been received from [facility]. The family meeting can be rescheduled for Tuesday. Phone call to Luz Marina regarding rescheduling family meeting - Voice message.
[2021-03-30 19:50] VITALS: BP 122/67
[2021-03-30 19:58] VITALS: BP 122/67
--- NOTE | 2021-03-31 00:29 | NUR ---
Assumed care on 03/30/21 @ 1900, seated in the day room, flat affect and does not speak. has taken her hospital ID band off. Replaced on her ankle. Refused p.o. meds twice from this nurse. A second nurse offered the p.o. meds and pt. continued to refuse.@ 2300, IM Lorazepam 1mg and Haldon 5mg given in the right deltoid, patient tolerated well. Retired to bed @ 2300, had to direct to her room, was insistant that she was going into another patient's room and trying to lock the door to keep staff out. @ 0000 took a staff member's badge that unlocks the exit doors and attempted to elope from the unit. X3 staff got the badge back from the patient and escorted her back to her room. Repeatedly locks the door of her room despite education that door needs to be kept ajar. Continuing to round q12 mintues to insure patient safety and the safety of other patients.
[2021-03-31 07:50] VITALS: BP 132/66
[2021-03-31 08:45] VITALS: BP 132/66
--- NOTE | 2021-03-31 14:15 | NUR ---
Andreea appeared to be alert and oriented to self only this shift. This morning she refused to talk to this blurb writer, making it difficult to assess pt. Another RN administered pt's morning medications, which she was compliant with and took whole without difficulty. She was noted wandering the unit and wandering into other pt's rooms at times. She required redirection and responded appropriately at times and others would become irritable and raise her voice to staff, but able to calm down with distraction. She sat in the dayroom for the majority of the day and presented with a confused/flat affect. She did appear to be paranoid and suspicious of others. She did not voice any physical complaints this shift, will continue to monitor.
[2021-03-31 19:45] VITALS: BP 125/71
[2021-03-31 20:12] VITALS: BP 125/71
--- NOTE | 2021-04-01 03:34 | NUR ---
Assumed care on 03/30/21 @ 1900, in the day room, ambulates throughout the mile[place]on with a steady gait. Sets off the alarms and attempts to elope from the lock down facility. Was compliant with medication administration, and took her meds whole with water after seeing me open the pill packs in front of her and letting her open the beverage herself, displays paranoid thinking and delusional thinking, speaks very little but does say a word or two.
[2021-04-01 05:52] LABS: HEMATOCRIT 34.4 % (37.0-47.0); HEMOGLOBIN 11.6 gm/dL (12.0-15.0); MCH 30.5 pg (26.0-34.0); MCHC 33.6 g/dL (28.0-37.0); MCV 90.9 fL (80.0-100.0); RBC 3.79 mil/uL (4.20-5.00); RDW 15.6 % (10.5-14.5); WBC 4.9 thou/uL (4.0-11.0)
[2021-04-01 06:10] LABS: CALCIUM 8.8 mg/dL (8.5-10.1); CREATININE 0.8 mg/dL (0.6-1.0); MAGNESIUM 2.2 mg/dL (1.8-2.4); POTASSIUM 3.9 mmol/L (3.5-5.1)
--- NOTE | 2021-04-01 09:41 | NUR ---
PATIENT WAS IN BED ASLEEP WHEN CARE ASSUMED. SHE DID GOT OUT OF BED FOR BREAKFAST, CONSUMED 100%. PATIENT INITIALLY REFUSED MORNING MEDICATION, BUT WITH LOTS OF ENCOURAGEMENT BY MULTIPLE STAFF, SHE TOOK THEM. PATIENT RESPONDS TO INTERNAL STIMULI, TALKS TO SELF, AND UNSEEN OTHERS. PATIENT DENIES SUICIDAL IDEATION, CHOOSE NOT TO RESPOND TO FURTHER ASSESSMENT QUESTIONS. AFFECT IS FLAT/BLUNTED, MOOD IS DEPRESSED/SAD. PATIENT IS WITHDRAWN, ISOLATIVE, REFUSES TO PARTICIPATE IN GROUP THERAPY. NO SIGN OF ACUTE DISTRESS NOTED AT THIS TIME, WILL CONTINUE TO REDIRECT, AND MONITOR FOR SAFETY.
[2021-04-01 09:44] VITALS: BP 109/72
--- NOTE | 2021-04-01 13:37 | NUR ---
Phone call to guardian regarding possible discharge for patient and wanting to provide information regarding a recent PRN - Voice message Phone call from Keiko arrieta [facility]. Moiz has received updates for the patient. BRIANA asked if the patient is able to return today with the knowledge of the PRN given. Moiz reported they would be able to take the patient back. [facility] will provide transportation between 2:30pm and 3:00pm. Phone call from Katharine waterman. BRIANA provided information regarding PRN. Katharine expressed that this is baseline behavior for the patient. She further expressed the desire for the patient to be discharged as she states the patient does better in placement.
[2021-04-01] MEDS ORDERED: LIPITOR 20 MG T20 M1 PO (14:09)
[2021-04-01] MEDS ORDERED: RISPERDAL 1 MG T1 MG PO (14:09)
--- NOTE | 2021-04-01 14:44 | NUR ---
FAX sent to Aislinn arrieta [facility] - Discharge paperwork
--- NOTE | 2021-04-02 08:45 | D ---
[facility] [place] [address] DISCHARGE SUMMARY Name: TONY AGOSTO Room #: 520B-B [facility] IN M.R.#: [id number] Admission: 03/27/21 Attend Phys: Osmar Ramirez DO Discharge: 04/01/21 Date of : 63 Report #: [id number] THIS REPORT FOR: cc: FAM - Family physician unknown FAM - Family physician unknown Osmar Ramirez DO ~ DATE OF SERVICE: 04/01/2021 PSYCHIATRIC DISCHARGE SUMMARY ATTENDING PSYCHIATRIST: Osmar Ramirez DO GAS FITTER: Maxim Taylor MD DISCHARGE DIAGNOSIS: Schizoaffective disorder, unspecified. MEDICAL COMORBIDITIES: Are as follows: Hypothyroidism, recommending checking TSH, free T4 in 6 weeks', concern for sick euthyroid state. Hyperlipidemia, Lipitor started. Severe protein-calorie malnutrition. The patient is discharging to [facility] for long-term care where she has been a resident for a number of years. DIET: Regular. ACTIVITY LEVEL: As tolerated. The patient requires 24-hour care and supervision. There was some difficulty making determination, but her mother Luz Marina is her [facility] supporting guardian and conservator. DISCHARGE MEDICATIONS: Atorvastatin 20 mg oral daily for hyperlipidemia, risperidone was increased this admission 2.5 mg oral b.i.d., levothyroxine 175 mcg oral daily, multivitamin oral daily, pantoprazole 40 mg oral daily. The patient will be receiving psychiatric and general medical care through the facility. No alcohol. No recreational drugs. Advised against patient smoking. LABORATORY DATA: From this admission, hematology: H and H 7.6 and 24.4, white count 4.9, platelet count 210. On 04/01, electrolytes, sodium 139, potassium 3.9, chloride 103, bicarbonate 27, anion gap 9, BUN 11, creatinine 0.8, estimated GFR 74, glucose 82. A1c 4.9, calcium 8.8, magnesium 2.2. B12 level 662. Vitamin D, interestingly it is still pending, I am guessing the hospitalist ordered that. Dr. Taylor did on 03/31. In any event, no radiology this admission. The patient had been taken from [address] [place] [address] for stroke, altered mental status concern, so there was radiology done there, but that is covered in the medicine discharge summary. REASON FOR ADMISSION: A 55-year-old female initially brought in for [address] [address] DISCHARGE SUMMARY Name: TONY AGOSTO Room #: 520B-B [facility] IN ..#: [id number] Admission: 03/27/21 Attend Phys: Osmar Ramirez DO Discharge: 04/01/21 Date of : 63 Report #: [id number] stay from [facility], she has been there 9 years. Has a history of schizoaffective disorder, quite chronic. From discussion with her mother and guardian, it started when she was in her mid 20s or so. The patient had been refusing medication frequently, refusing food early on. It should be noted it was not verified that she had a [place] Court appointed guardian until after she was on the [facility] Unit. Therefore, she was initially a 96-hour hold. HOSPITAL COURSE: The patient was admitted to Geriatric Psychiatry Unit. The patient remained selectively mute mostly; of the topics I did get her to talk to me about was her mother calling me! The patient I think has unfortunately very low functional level chronicity of illness. When we did verify her mother is the guardian, we had a telephonic meeting, the mother was very adamant that she wanted to return to the [facility] as soon as possible. Her medication compliance is better there. So, the following day here the , proceeded with discharge. The patient denies being suicidal or homicidal. PHYSICAL EXAMINATION: Vital signs, temperature 36.2, pulse 56, respirations 18, BP 109/72, O2 sat 96%. BMI currently 28.9, when they actually looked in to see, they documented drop in weight. It looks like she was about the same on admission, so her protein calorie malnutrition was occuring prior present admission. Anyways, physical exam, slow gait, normal station. MENTAL STATUS EXAMINATION: Well-developed, somewhat ill-appearing female, appearing actually older than stated age. Attention impaired, concentration limited. Speech soft, slow, nonspontaneous. Thought process: Linear. Very limited thought content, fair poverty of thought, difficult to tell at times if she is thought blocking. She denied SI or HI. She denied auditory, visual, or tactile hallucinations. Mood was constricted and congruent. Memory not formally tested. Insight and judgment limited. Fund of knowledge below average at this point. Prognosis for this patient is guarded given her roughly 30-year history of chronic mental illness, unknown functionality. <ELECTRONICALLY SIGNED> By: Osmar Ramirez DO 04/02/21 0845 [id number] Osmar Ramirez DO /nt
--- NOTE | 2021-04-03 16:03 | NUR ---
Fax to [facility] - Low Vitamin D for patient
== END 2021-04-01 17:10 | DRG 885 ==
LOC: SBH
PROVIDERS: Hospitalist; Internal Medicine; Psychiatry & Neurology Psychiatry; ADMIT Psychiatry & Neurology Psychiatry; ATTEND Psychiatry & Neurology Psychiatry
DX: F25.1 Schizoaffective disorder, depressive type (principal); J18.9 Pneumonia, unspecified organism; E43 Unspecified severe protein-calorie malnutrition; G93.40 Encephalopathy, unspecified; I10 Essential (primary) hypertension; K21.9 Gastro-esophageal reflux disease without esophagitis; E78.5 Hyperlipidemia, unspecified; F41.9 Anxiety disorder, unspecified; E03.9 Hypothyroidism, unspecified; M19.90 Unspecified osteoarthritis, unspecified site; Z20.822 Contact with and (suspected) exposure to COVID-19; Z79.899 Other long term (current) drug therapy; Z68.28 Body mass index [BMI] 28.0-28.9, adult
CPT/HCPCS: 10880